=== PATIENT | male | born 1980 | race Caucasian/White ===

== ENCOUNTER 2016-05-27 13:55 | Emergency (ER) | payer OTHER ==
[~2016-05-27] VITALS: Ht 180.3 cm; Wt 87.0 kg
[~2016-05-27 13:55] MED LIST: AZIT500T2 PO; BENZ100 PO; CEPH500C3 PO; IBUP800T23 PO; PRIL20CA PO
[2016-05-27 13:58] VITALS: BP 128/63; PULSE 80; RESP 24; TEMP 97.9; O2SAT 97
[2016-05-27] MEDS ORDERED: SODIUM CHLOR 0.9% 1000 ML INJ 1,000 ML IV SCH (14:45)
[2016-05-27] MEDS ORDERED: MORPHINE SULFATE 4 MG/ML INJ IV PUSH ONE (14:45)
[2016-05-27] MEDS ORDERED: ONDANSETRON HCL 4 MG/2 ML VIAL IV PUSH ONE (14:45)
--- NOTE | 2016-05-27 14:58 | PD ---
HPI Chief Complaint: Laceration/Skin Injury Time Seen by Provider: 14:40 Travel History International Travel<30 days: No Contact w/Intl Traveler<30days: No Traveled to known affect area: No History of Present Illness HPI 35-year-old male complains of laceration to left upper arm. Patient was cutting a lock with a disk grinder. Patient states that the disk grinder broke off and a piece of metal flew into his left arm and lacerated his left upper arm. Patient denies any other injury. Patient complained of sharp pain localized to the laceration area. Patient denies any pain radiation. Patient denies any focal weakness and numbness of the extremity distal to the laceration. Patient states that he is up-to-date with TD booster. PFSH Past Medical History Hx Anticoagulant Therapy: No (HEPATITIS) Arthritis: Yes Anxiety: Yes Cancer: No Cardiovascular Problems: No Diminished Hearing: No Endocrine: No Fibromyalgia: Yes Gastrointestinal Disorders: No Genitourinary: No Hepatitis: Yes (C) Immune Disorder: No Implanted Vascular Access Dvce: No Musculoskeletal: Yes (FIBROMYALGIA) Psychiatric: Yes Reproductive: No Respiratory: No Past Surgical History Other Surgery: No Social History Alcohol Use: No Tobacco Use: Yes (1 PPD) Substance Use: No Allergies-Medications (Allergen,Severity, Reaction): Coded Allergies: Wasp (Verified Allergy, Intermediate, Swelling throat , rash , 03/19/16) Reported Meds & Prescriptions Reported Meds & Active Scripts Active Review of Systems General / Constitutional: No: Fever Eyes: No: Visual changes HENT: No: Headaches Cardiovascular: No: Chest Pain or Discomfort Respiratory: No: Shortness of Breath Gastrointestinal: No: Abdominal Pain Genitourinary: No: Dysuria Musculoskeletal: Positive: Pain Skin: No Rash Neurologic: No: Weakness Psychiatric: No: Depression Endocrine: No: Polydipsia Hematologic/Lymphatic: No: Easy Bruising Physical Exam Narrative GENERAL: Well-nourished, well-developed patient. SKIN: Warm and dry. HEAD: Normocephalic. EYES: No scleral icterus. No injection or drainage. NECK: Supple, trachea midline. No JVD or lymphadenopathy. CARDIOVASCULAR: Regular rate and rhythm without murmurs, gallops, or rubs. RESPIRATORY: Breath sounds equal bilaterally. No accessory muscle use. GASTROINTESTINAL: Abdomen soft, non-tender, nondistended. MUSCULOSKELETAL: No cyanosis, or edema. BACK: Nontender without obvious deformity. No CVA tenderness. Patient has 8 centimeter laceration left upper arm over the deltoid area, through the skin, subcutaneous tissue, muscle. No active bleeding. Sensorimotor function distally intact. Data Data Last Documented VS Vital Signs Date Time Temp Pulse Resp B/P Pulse Ox O2 Delivery O2 Flow Rate FiO2 05/27/16 14:26 80 05/27/16 13:58 97.9 24 128/63 97 Orders Morphine Inj (Morphine Inj) (05/27/16 14:45) Ondansetron Inj (Zofran Inj) (05/27/16 14:45) Sodium Chlor 0.9% 1000 Ml Inj (Ns 1000 M (05/27/16 14:45) Complete Blood Count With Diff (05/27/16 14:41) Basic Metabolic Panel (Bmp) (05/27/16 14:41) Iv Access Insert/Monitor (05/27/16 14:41) Humerus (Min 2vws) (05/27/16 14:41) Labs Laboratory Tests Test 05/27/16 15:24 White Blood Count 6.5 TH/MM3 Red Blood Count 4.74 MIL/MM3 Hemoglobin 15.1 GM/DL Hematocrit 42.5 % Mean Corpuscular Volume 89.6 FL Mean Corpuscular Hemoglobin 31.9 PG Mean Corpuscular Hemoglobin 35.6 % Concent Red Cell Distribution Width 13.5 % Platelet Count 281 TH/MM3 Mean Platelet Volume 8.9 FL Neutrophils (%) (Auto) 56.6 % Lymphocytes (%) (Auto) 30.0 % Monocytes (%) (Auto) 11.8 % Eosinophils (%) (Auto) 1.0 % Basophils (%) (Auto) 0.6 % Neutrophils # (Auto) 3.7 TH/MM3 Lymphocytes # (Auto) 2.0 TH/MM3 Monocytes # (Auto) 0.8 TH/MM3 Eosinophils # (Auto) 0.1 TH/MM3 Basophils # (Auto) 0.0 TH/MM3 CBC Comment DIFF FINAL Differential Comment Sodium Level 142 MEQ/L Potassium Level 3.8 MEQ/L Chloride Level 105 MEQ/L Carbon Dioxide Level 31.4 MEQ/L Anion Gap 6 MEQ/L Blood Urea Nitrogen 12 MG/DL Creatinine 1.00 MG/DL Estimat Glomerular Filtration 84 ML/MIN Rate Random Glucose 133 MG/DL Calcium Level 8.3 MG/DL MDM Medical Decision Making Medical Screen Exam Complete: Yes Emergency Medical Condition: Yes Differential Diagnosis Differential diagnosis including laceration, muscle injury, ligament tendon joint involvement, bony involvement. Narrative Course 35-year-old male with laceration left upper arm involving the skin soft tissue and muscle. Procedures Procedure Narrative Laceration was repaired by surgeon Dr. Monique Diagnosis Primary Impression: Laceration of left upper arm Qualified Code: S41.112A - Laceration of left upper arm, initial encounter Patient Instructions: General Instructions Additional Instructions: Wound care daily. Take medication as directed. Return in 2 days for wound check and 14 days for suture removal. Med/Other Pt SpecificInfo: Prescription(s) given Scripts Cephalexin (Keflex)500 Mg Zaf120 Mg PO Q8H #21 CAP Ref 0 Prov:Antwon Solis MD 05/27/16 Tramadol (Ultram)50 Mg Tab50 Mg PO Q6H PRN (PAIN) #30 TAB Ref 0 Prov:Antwon Solis MD 05/27/16 Meloxicam (Mobic)15 Mg Tab15 Mg PO DAILY #20 TAB Prov:Antwon Solis MD 05/27/16 Disposition: 01 DISCHARGE HOME Condition: Stable Antwon Solis MD May 27, 2016 14:58
[2016-05-27 15:36] LABS: AUTOMATED NEUTROPHIL # 3.7 TH/MM3 (1.8-7.7); BASOPHIL % 0.6 % (0.0-2.0); EOSINOPHIL # 0.1 TH/MM3 (0-0.4); HEMATOCRIT 42.5 % (39.0-51.0); HEMO FLAGS DIFF FINAL; MEAN CELL VOLUME 89.6 FL (80.0-100.0); MEAN CORPUSCULAR HEMOGLOBIN 31.9 PG (27.0-34.0); MEAN CORPUSCULAR HGB CONC 35.6 % (32.0-36.0); MONO % 11.8 % (0.0-8.0); NEUT % 56.6 % (16.0-70.0); PLATELET COUNT 281 TH/MM3 (150-450); RED BLOOD COUNT 4.74 MIL/MM3 (4.50-5.90); RED CELL DISTRIBUTION WIDTH 13.5 % (11.6-17.2); WHITE BLOOD COUNT 6.5 TH/MM3 (4.0-11.0)
--- NOTE | 2016-05-27 15:37 | RADRPT ---
EXAM DATE/TIME: 05/27/2016 15:22 [facility] COMPARISON: No previous studies available for comparison. INDICATIONS : Left upper arm cut by saw blade today, arm is wrapped in gauze, area that is lacerated is located wit h left marker MEDICAL HISTORY : None. SURGICAL HISTORY : None. ENCOUNTER: Initial ACUITY: 1 day PAIN SCORE: 10/10 LOCATION: Left humerus FINDINGS: Two view examination of the left humerus demonstrates no evidence of fracture or dislocation. Bony m ineralization is normal. Soft tissue laceration. No foreign body. CONCLUSION: Soft tissue laceration. No fracture. Wilman Valadez MD on May 27, 2016 at 15:35 Board Certified Radiologist. This report was verified electronically.
[2016-05-27 16:07] LABS: BICARBONATE 31.4 MEQ/L (21.0-32.0); POTASSIUM 3.8 MEQ/L (3.5-5.1)
[2016-05-27] MEDS ORDERED: ULTR50TA5 PO (16:53)
[2016-05-27] MEDS ORDERED: CEPH-460 PO (16:53)
[2016-05-27] MEDS ORDERED: MOBI15TA PO (16:53)
--- NOTE | 2016-05-28 06:58 | MP ---
cc: ZEE RODRIGUEZ MD DATE OF SURGERY: 05/27/2016 PREOPERATIVE DIAGNOSIS Large laceration of the left deltoid muscle with penetration to the bone. POSTOPERATIVE DIAGNOSIS Large laceration of the left deltoid muscle with penetration to the bone. OPERATIVE PROCEDURE Irrigation of the wound, approximation of the deltoid muscle and closure repair of the skin; incision size 10 cm long, 5 cm deep. SURGEON Miguel ANESTHESIA 1% Xylocaine, sedation. ESTIMATED BLOOD LOSS 20 cc. INDICATION FOR PROCEDURE This 35-year-old male was working with some sort of a saw when the blade bounced and hit him in the left deltoid muscle lacerating it down to the bone. The patient underwent workup with an x-ray which revealed no foreign bodies or any debris, hence the procedure. DETAILS OF PROCEDURE The patient is prepped and draped in the usual fashion. The area is now irrigated with copious amounts of saline with Betadine and then clean saline, infiltrated with 1% Xylocaine and explored. There is a clean cut of the muscle in a sort of oblique trajectory. The muscle fascia is approximated with interrupted 3-0 Vicryl and then skin is approximated with 3-0 nylon. Dressing is applied. The patient tolerated the procedure well. Zee ROBLERO/CHARBEL /5:07 PM /6:49 AM
== END 2016-05-27 17:12 | disposition home or self-care (01) ==
LOC: NEPA 13:55
DX: S41.112A Laceration without foreign body of left upper arm, initial encounter (principal); M79.7 Fibromyalgia; B19.20 Unspecified viral hepatitis C without hepatic coma; F17.210 Nicotine dependence, cigarettes, uncomplicated; W29.8XXA Contact with other powered hand tools and household machinery, initial encounter; Y99.8 Other external cause status
CPT/HCPCS: 12034; 73060; 80048; 85025; 96374; 96375; 99283; J2270; J2405; J7030; 12004

== ENCOUNTER 2016-05-30 13:13 | Emergency (ER) | payer OTHER ==
[~2016-05-30] VITALS: Ht 180.3 cm; Wt 87.0 kg
[~2016-05-30 13:13] MED LIST changes: +CEPH-460 PO; +MOBI15TA PO; +ULTR50TA5 PO
[2016-05-30 13:16] VITALS: BP 122/57; PULSE 84; RESP 15; TEMP 98.2; O2SAT 98
--- NOTE | 2016-05-30 14:46 | PD ---
HPI Chief Complaint: Wound/Suture/Staple Re-Check Time Seen by Provider: 14:41 Travel History International Travel<30 days: No Contact w/Intl Traveler<30days: No Traveled to known affect area: No History of Present Illness HPI Patient comes in for recheck of the wound on his left deltoid that occurred 3 days ago. Patient states that he has kept a dressing on it as he was told not to take the dressing off until he had his wound rechecked in 3 days. Patient has been taking antibiotics as directed. Denies any fevers or other concerns with wound. PFSH Past Medical History Hx Anticoagulant Therapy: No (HEPATITIS) Arthritis: Yes Anxiety: Yes Cancer: No Cardiovascular Problems: No Diminished Hearing: No Endocrine: No Fibromyalgia: Yes Gastrointestinal Disorders: No Genitourinary: No Hepatitis: Yes (C) Immune Disorder: No Implanted Vascular Access Dvce: No Musculoskeletal: Yes (FIBROMYALGIA) Psychiatric: Yes Reproductive: No Respiratory: No Past Surgical History Other Surgery: No Social History Alcohol Use: No Tobacco Use: Yes (1 PPD) Substance Use: No Allergies-Medications (Allergen,Severity, Reaction): Coded Allergies: Wasp (Verified Allergy, Intermediate, Swelling throat , rash , 05/30/16) Reported Meds & Prescriptions Reported Meds & Active Scripts Active Keflex (Cephalexin) 500 Mg Cap 500 Mg PO Q8H Ultram (Tramadol HCl) 50 Mg Tab 50 Mg PO Q6H PRN Mobic (Meloxicam) 15 Mg Tab 15 Mg PO DAILY Review of Systems Except as stated in HPI: all other systems reviewed are Neg Physical Exam Narrative GENERAL: Well-developed, well nourished, in no acute distress, and non-ill appearing. SKIN: Warm and dry. Well-healing laceration on the left deltoid. Sutures are intact. His dry clean and intact. There is no drainage, erythematous, crepitus , or other signs of infection. There is ecchymosis surrounding this. HEAD: Atraumatic. Normocephalic. EYES: Pupils equal and round. EOMI. No scleral icterus. No injection or drainage. ENT: No nasal bleeding or discharge. Mucous membranes pink and moist. NECK: Trachea midline. Supple. No nuclear rigidity. CARDIOVASCULAR: Radial pulses 2+ intact and equal bilaterally. Capillary refill less than 2 seconds. RESPIRATORY: No accessory muscle use. No respiratory distress. MUSCULOSKELETAL: No obvious deformities. No clubbing. No cyanosis. Soft tissue swelling distal to the injury. Full range of motion. Shoulder:FROM equal BL with passive flexion, extension, Abduction, Adduction, internal/ external rotation, and pronation/supination. Sensation equal BL deltoid muscles. Pulses equal BL distal to injury. Capillary refill less than 2 seconds distal to injury and equal BL. FROM distal to injury and equal BL. Strength distal to injury equal BL. NV intact distal to injury equal BL. Flexion and extension of thumb equal BL. Equal strength and movement with abduction/adductions of BL fingers. School Bus Operator strength equal BL. NEUROLOGICAL: Awake and alert. No obvious cranial nerve deficits. Motor grossly within normal limits. Normal speech. PSYCHIATRIC: Appropriate mood and affect; insight and judgment normal. Data Data Last Documented VS Vital Signs Date Time Temp Pulse Resp B/P Pulse Ox O2 Delivery O2 Flow Rate FiO2 05/30/16 13:16 98.2 84 15 122/57 98 MDM Medical Decision Making Medical Screen Exam Complete: Yes Emergency Medical Condition: No Differential Diagnosis Wound infection, wound check, other Narrative Course Patient in no obvious distress upon re-evaluation. Discussed patient with Dr. Solis, as he saw the patient on initial visit 3 days ago, who came and evaluated the wound and is in agreement with plan of care and disposition. Any questions/ concerns in reference to patient diagnosis/condition discussed and clarified prior to patient's discharge. Reinforced sheer importance of close follow up with patient's primary physician or primary care clinic. Instructed patient to return to ED immediately, if symptoms return/worsen. Pt showed understanding of above instructions. Further instructions and recommendations were detailed in discharge paperwork. Pt ambulated without difficulty out of ED at discharge. Diagnosis Primary Impression: Encounter for wound re-check Referrals: Zee Rivera MD Patient Instructions: Acute Wound Care (ED), Care For Your Stitches (ED), General Instructions Additional Instructions: Follow-up with surgeon as previously instructed. Take all medication as previously prescribed. Elevate affected extremity above your heart to decrease pain and swelling. Keep wound dry and clean as possible using soap and water. Use Neosporin to promote healing. Return to the emergency department if symptoms get worse. Disposition: 01 DISCHARGE HOME Condition: Stable Efren Haddad May 30, 2016 14:46
== END 2016-05-30 15:06 | disposition home or self-care (01) ==
LOC: NEPB 13:13
DX: Z47.89 Encounter for other orthopedic aftercare (principal); F17.210 Nicotine dependence, cigarettes, uncomplicated
CPT/HCPCS: 99281